=== PATIENT | male | born 1990 | race Caucasian/White ===

== ENCOUNTER 2024-04-25 17:31 | Emergency (ER) | payer MEDICAID, SELFPAY ==
[2024-04-25 17:46] VITALS: BP 121/85; PULSE 85; RESP 12; O2SAT 99; BMI 26.0
--- NOTE | 2024-04-25 17:51 | PC.NURSE ---
patient from EMS, was found behind the [place] on [facility] to be unresponsive, patient initially recieved 8mg of narcan prior to EMS arrival, EMS states when they appeared on scene patient patient was alert and talking to them, upon arriving to ED patient became unresponsive again, maintaining airway however unable to be aroused through painful stimuli. oxygenation at 99% BP 125/81, patient incredibly lethargic and drooling, another 8mg of narcan administered in ED with no effect, patient continues to be able to maintain his own airway. per MD monitor at this time, place on O2 as needed. patient stripped out of street clothes by security and changed into appropriate hosptial attire. placed on hospital monitor. still lethargic at this time, not answering any questions for staff. will continue to monitor
[2024-04-25 17:53] VITALS: RESP 14
[2024-04-25] MEDS: Naloxone HCl Nasal TAKE HOME 4 MG SPRAY 8 MG NOSTRILALT ×2 (17:59→22:14)
[2024-04-25 18:00] VITALS: BP 127/81; PULSE 70; RESP 21; O2SAT 98
--- NOTE | 2024-04-25 18:04 | ED_ITS ---
HPI - Overdose General Chief Complaint: Overdose Stated Complaint: Heroine OD, 8mg narcan given by [facility] Time Seen by Provider: 04/25/24 17:48 Source: EMS Mode of arrival: EMS Limitations: altered mental status History of Present Illness ED Provider: Dr. Yenni Cartwright HPI Narrative: Patient comes to emergency room by ambulance. Patient was found by bystanders behind the [address] on [facility]. The patient was unresponsive. Patient was given 8 mg of intranasal Narcan prior to EMS arrival. When EMS arrived, patient was awake, talking. On arrival to the ED, patient became unresponsive again, patient needed additional Narcan here in the emergency room, 8 additional mg of Narcan. Patient woke up, goes back to sleep, responsive to painful stimuli, oxygen saturation 99% on room air. At this time, patient is significantly somnolent, not answering any questions Related Data Allergies Allergy/AdvReac Type Severity Reaction Status Date / Time No Known Allergies Allergy Verified 04/25/24 17:49 [No Known Allergies*] Review of Systems 2 Review of Systems: Yes Other [facility] Past Medical History Medical History Drug overdose Social History Social History Use of substances other than those prescribed or required for medical reasons: Unable to respond Last Used Substance: Just Prior to Admission Advance Directives: No Advance Directives Information Provided: No Do you have a plan to hurt others: No Plan Physical Exam 2 Vital Signs: Vital Signs: Last Vital Signs Temp 98.6 F 04/25/24 19:42 Pulse 69 04/25/24 19:42 Resp 28 H 04/25/24 19:42 BP 133/91 H 04/25/24 19:42 Pulse Ox 98 04/25/24 19:42 O2 Del Method Room Air 04/25/24 19:42 BMI result Body Mass Index 26.0 Const: Other: Appearance: Somnolent, wakes up to sternal rub Eyes: Pupils equal, round and reactive to light. ENT: Pharynx normal. Neck: Normal inspection. Neck supple. No lymph nodes noted. No crepitus CVS: Normal heart rate and rhythm. Pulses normal. Normal S1 and S2 Respiratory: No respiratory distress. Breath sounds normal. No Wheezing. No rales Abdomen: Soft and nontender. No rigidity. No distention. Skin: Skin warm and dry. Pale Normal skin turgor. Extremities: No lower extremity edema. No Lacerations. No Rash Neuro: Very somnolent, wakes up to sternal rub, not answering any questions Psych: somnolent Course Course Course Narrative: -in total, patient has received 16 mg of Narcan Patient's vitals normal, blood pressure 121/85, heart rate 85, oxygen saturation 99% on room air Medications Administered Discontinued Medications Generic Name Dose Route Start Last Admin Trade Name Aaron PRN Reason Stop Dose Admin Naloxone HCl 8 mg 04/25/24 17:49 04/25/24 17:59 Naloxone Hcl Nasal Take Home 4 Mg [place] NOSTRILALT 04/25/24 17:50 8 mg ONCE ONE Administration Medical Decision Making Medical Decision Making [facility] Narrative: My interpretation of labs, no significant abnormality in the Hematology, slightly anemic, chemistry no electrolyte abnormality. ETOH negative, urine toxicology pending -patient continues sleeping, vitals stable, blood pressure 127/81, oxygen saturation 98% on room air, somnolent, arousable to painful stimuli -physician observation started at 18:55 -a 22:00, patient is awake, alert and oriented x3. Patient denies SI or HI. 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 Patient was able to walk to the bathroom by himself, patient states that he feels well, requesting to be discharged home Differential Diagnosis Differential Diagnoses: The differential diagnosis associated with the presentation includes (Polysubstance abuse, alcohol abuse) Admission/Observation Consideration of admission/observation: Escalation of care including admission/observation considered (Patient is under physician observation) Lab Data [facility] Lab Attestation statement: I reviewed the patient's lab results. 04/25/24 18:07 04/25/24 18:07 Labs: Lab Results 04/25/24 Range/Units 18:07 WBC 6.1 (4.8-10.8) X10*3/uL RBC 4.23 L (4.60-5.80) X10*6/uL Hgb 12.0 L (14.0-18.0) g/dl Hct 35.7 L (42.0-52.0) % MCV 84.4 (80.0-98.0) fL MCH 28.4 (27.0-33.0) pg MCHC 33.6 (31.0-36.0) g/dl RDW 13.7 (11.0-16.0) % Plt Count 219 (160-400) X10*3/uL MPV 9.1 L (9.4-12.4) fL Immature Gran % (Auto) 0.2 (0.0-0.4) % Neut % (Auto) 65.3 (45-73) % Lymph % (Auto) 16.2 L (20-40) % [place] % (Auto) 17.8 H (2-11) % Eos % (Auto) 0.0 (0-4) % Baso % (Auto) 0.5 (0-2) % Lymph # (Auto) 1.0 L (1.2-4.9) X10*3/uL [place] # (Auto) 1.1 (0.1-1.2) X10*3/uL Eos # (Auto) 0.0 (0.0-0.4) X10*3/uL Baso # (Auto) 0.0 (0.0-0.2) X10*3/uL Abs Immat Gran (auto) 0.01 (0.00-0.03) X10*3/uL Absolute Neuts (auto) 4.0 (2.0-8.3) x10*3/uL Absolute Nucleated RBC 0.000 (0.0-0.012) X10*3/uL Nucleated RBC % (auto) 0.0 (0.0-0.2) /100WBC Sodium 140 (135-145) mmol/L Potassium 4.0 (3.3-5.1) mmol/L Chloride 107 (96-108) mmol/L Carbon Dioxide 25 (22-29) mmol/L Anion Gap 12 (12-20) BUN 10 (9-16) mg/dL Creatinine 1.10 (0.5-1.4) mg/dL Estim Creat Clear Calc 104.8 Estimated GFR > 60 Random Glucose 146 H (60-115) mg/dL Calcium 9.6 (8.4-10.2) mg/dL Total Bilirubin 0.4 (0.0-1.0) mg/dL Direct Bilirubin 0.1 (0.0-0.5) mg/dL AST 27 (5-37) U/L ALT 19 (0-40) U/L Alkaline Phosphatase 67 (39-117) U/L Total Protein 7.5 (6.5-8.0) g/dL Albumin 4.3 (3.5-5.0) g/dL Ethyl Alcohol < 10 mg/dL Critical Care Time Critical Care Time Critical Care Time: Yes Total Critical Care Time: 35 Attestation: I have personally provided critical care time. Time includes review of lab data, radiology results, discussion with consultants, and monitoring for potential decompensation. Intervention performed as documented. Discharge Plan Discharge Clinical Impression: Drug overdose Patient Disposition: Home, Self-Care Instructions: Adult Overdose (ED) Additional Instructions: You almost . Please stop using drugs. Please follow-up with your primary care physician tomorrow. If you have any worsening or new symptoms, please return to the emergency room or call 911 Print Language: Pashto
[2024-04-25 18:11] LABS: MANUAL DIFF FLAG NO
[2024-04-25 18:12] LABS: Basophils Percent Auto 0.5 % (0-2); Hematocrit 35.7 % (42.0-52.0); Imm Gran Abs Auto 0.01 X10*3/uL (0.00-0.03); Imm Gran Pct Auto 0.2 % (0.0-0.4); Lymphocytes Percent Auto 16.2 % (20-40); Mean Corpuscular HGB Conc 33.6 g/dl (31.0-36.0); Mean Corpuscular Hemoglobin 28.4 pg (27.0-33.0); Mean Corpuscular Volume 84.4 fL (80.0-98.0); Mean Platelet Volume 9.1 fL (9.4-12.4); Monocytes Absolute Auto 1.1 X10*3/uL (0.1-1.2); Monocytes Percent Auto 17.8 % (2-11); Neutrophils Percent Auto 65.3 % (45-73); Platelet Count 219 X10*3/uL (160-400); Red Blood Count 4.23 X10*6/uL (4.60-5.80); Red Cell Distribution Width 13.7 % (11.0-16.0); White Blood Count 6.1 X10*3/uL (4.8-10.8)
[2024-04-25 18:27] LABS: Alanine Aminotransferase 19 U/L (0-40); Albumin Level 4.3 g/dL (3.5-5.0); Alkaline Phosphatase 67 U/L (39-117); Anion Gap 12 (12-20); Aspartate Amino Transferase 27 U/L (5-37); Bilirubin Direct 0.1 mg/dL (0.0-0.5); Bilirubin Total 0.4 mg/dL (0.0-1.0); Blood Urea Nitrogen 10 mg/dL (9-16); Calcium 9.6 mg/dL (8.4-10.2); Carbon Dioxide 25 mmol/L (22-29); Chloride 107 mmol/L (96-108); Creatinine Clr Calc Pharmacy 104.8; Estimated Glomerular Filt Rate > 60; Ethanol < 10 mg/dL; Glucose Random 146 mg/dL (60-115); Sodium 140 mmol/L (135-145); Total Protein 7.5 g/dL (6.5-8.0)
[2024-04-25 19:42] VITALS: BP 133/91; PULSE 69; RESP 28; TEMP 37; O2SAT 98
--- NOTE | 2024-04-25 19:44 | PC.NURSE ---
assumed care of pt at 1915. pt previously administered total 16mg narcan. at this time pt unarousable; groaning to painful stimuli. vitals as documented. resp approx 28/min shallow breathing. rectal temp wnl. o2 sats 99%, end tital co2 16. pupils pinpoint. made aware and to bedside. no further interventions at this time. monitoring ongoing.
--- NOTE | 2024-04-25 21:58 | PC.NURSE ---
pt is now axox4 ambulatory with steady gait. pt recalls events and location prior to overdosing, initially stated i didnt overdose i just blacked out. then stated i did a bundle. pt denies si/hi and requesting to leave at this time. vspadmini SHABAZZ made aware.
[2024-04-25 22:03] VITALS: BP 109/70; PULSE 63; RESP 14; TEMP 36.4; O2SAT 99
[2024-04-25 22:31] VITALS: BP 109/70; PULSE 63; RESP 14; TEMP 36.4; O2SAT 99
== END 2024-04-25 22:32 | disposition home or self-care (01) ==
PROVIDERS: Emergency Provider Emergency Medicine
DX: T40.1X1A Poisoning by heroin, accidental (unintentional), initial encounter (principal); Y92.9 Unspecified place or not applicable; Z79.899 Other long term (current) drug therapy; R40.4 Transient alteration of awareness
CPT/HCPCS: 36415; 80048; 80076; 80307; 85025; 99284; 99285